=== PATIENT | female | born 1985 | race Caucasian/White ===

== ENCOUNTER 2016-12-12 22:27 | Emergency (ER) | payer SELFPAY ==
[~2016-12-12] VITALS: Ht 160 cm; Wt 97.5 kg
[~2016-12-12 22:27] MED LIST: FAMO-96 PO; PRENAT PO
[2016-12-12 22:44] VITALS: Ht 160 cm; Wt 97.5 kg
== END 2016-12-12 22:59 | disposition left against medical advice (07) ==
LOC: FTE 22:27 → E/R 22:59
DX: Z53.21 Procedure and treatment not carried out due to patient leaving prior to being seen by health care provider (principal)

== ENCOUNTER 2017-05-25 11:59 | Emergency (ER) | END 2017-05-25 16:00 | disposition home or self-care (01) ==

== ENCOUNTER 2017-11-22 13:12 | Outpatient (CLI) | END 2017-11-22 17:20 | disposition home or self-care (01) ==

== ENCOUNTER 2017-11-23 17:03 | Outpatient (CLI) | END 2017-11-23 19:31 | disposition home or self-care (01) ==

== ENCOUNTER 2017-11-25 19:28 | Outpatient (CLI) | END 2017-11-25 21:13 | disposition home or self-care (01) ==

== ENCOUNTER 2017-12-31 12:12 | Inpatient (IN) | END 2018-01-03 13:15 | disposition home or self-care (01) | DRG 807 ==